=== PATIENT | male | born 1955 | race Caucasian/White ===

== ENCOUNTER 2018-06-21 09:24 | Emergency (ER) | payer OTHER, MEDICAID ==
[~2018-06-21] VITALS: Ht 182.9 cm; Wt 90.7 kg
[2018-06-21 09:25] VITALS: BP_SYST 168
[2018-06-21 10:40] VITALS: BP_SYST 168
== END 2018-06-21 10:40 | disposition home or self-care (01) ==
LOC: SED 09:24
DX: K59.00 Constipation, unspecified (principal); R03.0 Elevated blood-pressure reading, without diagnosis of hypertension
CPT/HCPCS: 99281